=== PATIENT | female | born 1995 | race Two or more races ===

== ENCOUNTER 2024-04-23 02:32 | Emergency (ER) | payer OTHER ==
[~2024-04-23] VITALS: Ht 167.6 cm; Wt 72.6 kg
[2024-04-23] MEDS ORDERED: MEPERIDINE HCL/PF 25 MG/ML VIAL IM STA (03:53)
[2024-04-23] MEDS ORDERED: FAMOTIDINE/PF 20 MG/2 ML VIAL IV PUSH STA (03:53)
[2024-04-23] MEDS ORDERED: PROMETHAZINE HCL 50 MG/ML AMPUL IM STA (03:54)
[2024-04-23] MEDS ORDERED: RINGERS SOLUTION,LACTATED 1,000 ML IV ONE (04:00)
[2024-04-23 05:37] LABS: HEMATOCRIT 35.3 % (36.0-45.00); MEAN CELL VOLUME 87.5 fL (80.00-100.00); MEAN CORPUSCULAR HEMOGLOBIN 29.7 pg (27.00-32.0); MEAN CORPUSCULAR HGB CONC 33.9 g/dl (32.0-36.0); PLATELET COUNT 283 K/uL (150-450); RED BLOOD COUNT 4.03 M/uL (4.00-6.00)
[2024-04-23 06:03] LABS: INR 0.99; PARTIAL THROMBOPLASTIN TIME 26.1 SECONDS (22.0-34.0); PROTHROMBIN TIME 10.8 SECONDS (9.0-11.5)
[2024-04-23 06:08] LABS: ALBUMIN 3.7 gm/dL (3.4-5.0); ALKALINE PHOSPHATASE 72 U/L (50-136); ALT/SGPT 15 U/L (12-78); AMYLASE 61 U/L (25-115); ANION GAP 11 (10.0-20.0); AST/SGOT 12 U/L (15-37); BILIRUBIN TOTAL 0.21 mg/dL (0.3-1.2); BILIRUBIN,CONJUGATED < 0.10 mg/dL (0.0-0.2); BILIRUBIN,UNCONJUGATED 0.11 mg/dL (0.0-0.6); BLOOD UREA NITROGEN 11 mg/dL (7-18); BUN CREA RATIO 15 (7.0-25.0); CALCIUM 9.1 mg/dL (8.5-10.1); CARBON DIOXIDE 25 mEq/L (21-32); CHLORIDE 110 mmol/L (98-107); CREATININE SERUM 0.75 mg/dL (0.55-1.02); GFR 92.01; GLOBULINA 3.9 G/DL (2.4-3.5); GLUCOSE FASTING 112 mg/dL (65-100); LIPASE 63 U/L (13-75); OSMOLALITY SERUM 283 MOSM/KG (275-295); POTASSIUM 4.26 mEq/L (3.5-5.1); SODIUM 142 mmol/L (136-145); TOTAL PROTEIN 7.6 gm/dL (6.4-8.2)
[2024-04-23 08:48] LABS: URINE APPEARANCE Clear; URINE BILIRRUBIN Negative (NEGATIVE); URINE BLOOD Moderate; URINE COLOR Yellow; URINE GLUCOSE Negative (NEGATIVE); URINE KETONE Negative (NEGATIVE); URINE LEUKOCYTE Negative; URINE NITRATE Negative; URINE PROTEIN Negative (NEGATIVE); URINE UROBILINOGEN 0.2 E.U./dl
[2024-04-23 08:50] LABS: URINE BACTERIA 46.4 uL (0.0-1933); URINE EPITHELIAL CELLS 1.4 uL (0.0-38.8); URINE RBC 24.1 uL (0.0-20.8); URINE WBC 2.2 uL (0.0-23.2)
[2024-04-23] MEDS ORDERED: PIPERACILLIN/TAZOBACTAM SODIUM 3.375 GM VIAL IV ONE (09:00)
== END 2024-04-23 13:30 | disposition home or self-care (01) ==
LOC: ER 02:32
PROVIDERS: General Practice
DX: R10.11 Right upper quadrant pain (principal); K80.20 Calculus of gallbladder without cholecystitis without obstruction

== ENCOUNTER 2024-05-05 05:00 | Day surgery (SDC) | payer OTHER ==
[2024-04-29 10:17] LABS: PH,URINE 5.5 (5.0-8.0); URINE APPEARANCE Clear; URINE BILIRRUBIN Negative (NEGATIVE); URINE BLOOD Negative; URINE COLOR Yellow; URINE GLUCOSE Negative (NEGATIVE); URINE KETONE Negative (NEGATIVE); URINE LEUKOCYTE Small; URINE NITRATE Negative; URINE PROTEIN Negative (NEGATIVE); URINE UROBILINOGEN 0.2 E.U./dl
[2024-04-29 10:18] LABS: URINE EPITHELIAL CELLS 23.5 uL (0.0-38.8); URINE RBC 11.4 uL (0.0-20.8); URINE WBC 50.1 uL (0.0-23.2)
[2024-04-29 10:19] LABS: URINE CAST 0.73 uL (0.0-1.40)
[2024-04-29 10:25] LABS: HEMATOCRIT 35.7 % (36.0-45.00); HEMOGLOBIN 11.8 g/dL (12.0-15.00); MEAN CELL VOLUME 88.9 fL (80.00-100.00); MEAN CORPUSCULAR HEMOGLOBIN 29.4 pg (27.00-32.0); PLATELET COUNT 306 K/uL (150-450); RED BLOOD COUNT 4.02 M/uL (4.00-6.00)
[2024-04-29 10:36] VITALS: BP 99/63
[2024-04-29 10:39] LABS: INR 1.02; PARTIAL THROMBOPLASTIN TIME 25.6 SECONDS (22.0-34.0); PROTHROMBIN TIME 11.1 SECONDS (9.0-11.5)
[2024-04-29 11:07] LABS: ALBUMIN 3.8 gm/dL (3.4-5.0); BILIRUBIN TOTAL 0.34 mg/dL (0.3-1.2); CALCIUM 8.9 mg/dL (8.5-10.1); CREATININE SERUM 0.7 mg/dL (0.55-1.02); GFR 99.64; GLOBULINA 3.5 G/DL (2.4-3.5); POTASSIUM 4.34 mEq/L (3.5-5.1); TOTAL PROTEIN 7.3 gm/dL (6.4-8.2)
[~2024-05-05] VITALS: Ht 167.6 cm; Wt 76.2 kg
[2024-05-05] MEDS ORDERED: CEFAZOLIN SODIUM 1,000 MG in 0.9 % SODIUM CHLORIDE 50 ML IV ONE (08:15)
[2024-05-05] MEDS ORDERED: MORPHINE SULFATE 4 MG/ML VIAL IV ONE (10:20)
== END 2024-05-05 12:25 | disposition home or self-care (01) ==
LOC: CIR.AMB 05:00
PROVIDERS: ATTEND Surgery
DX: K80.20 Calculus of gallbladder without cholecystitis without obstruction (principal)